=== PATIENT | female | born 1965 | race Caucasian/White ===

== ENCOUNTER 2023-06-01 16:03 | Emergency (ER) | payer OTHER ==
[~2023-06-01] VITALS: Ht 162.6 cm; Wt 99.8 kg
[~2023-06-01 16:03] MED LIST: LEVO500T20 PO; NORCO5 PO
[2023-06-01 16:05] VITALS: BP_SYST 152; PULSE 110; RESP 20; TEMP 97.2; O2SAT 94
[2023-06-01 16:57] LABS: BASOPHILS # (AUTO) 0.1 K/uL (0.0-0.2); BASOPHILS % (AUTO) 0.5 % (0.0-2.0); EOSINOPHILS % (AUTO) 0.1 % (0.0-4.0); HEMOGLOBIN 13.9 g/dL (12.0-16.0); LYMPHOCYTES % (AUTO) 7.9 % (20.5-51.5); MEAN CORPUSCULAR HEMOGLOBIN 30 pg (27-31); MEAN CORPUSCULAR HGB CONC 34 % (32-36); MEAN CORPUSCULAR VOLUME 89 fL (79.0-98.0); MONOCYTES # (AUTO) 0.7 K/uL (0.0-1.0); MONOCYTES % (AUTO) 5.4 % (1.7-9.3); NEUTROPHILS # (AUTO) 10.4 K/uL (1.8-7.7); NEUTROPHILS % (AUTO) 86.1 % (40.0-70.0); PLATELET COUNT (AUTO) 250 K/uL (130-430); RED BLOOD CELL COUNT(AUTO) 4.61 MIL/uL (4.2-6.2); RED CELL DISTRIBUTION WIDTH 13.5 % (9.0-15.0); WHITE BLOOD COUNT (AUTO) 12.1 K/uL (4.8-10.8)
[2023-06-01 17:05] LABS: CALCIUM 8.9 mg/dL (8.4-11.0); CREATININE 0.76 mg/dL (0.55-1.30); POTASSIUM 3.6 mmol/L (3.5-5.1)
[2023-06-01] MEDS: KETOROLAC TROMETHAMINE 60 MG/2 ML VIAL IM ONE (18:18)
[2023-06-01 18:44] LABS: BILIRUBIN,URINE NEGATIVE (NEGATIVE); BLOOD, URINE NEGATIVE (NEGATIVE); COLOR,URINE YELLOW (YELLOW); GLUCOSE,URINE 1+ (NEGATIVE); KETONES,URINE NEGATIVE (NEGATIVE); LEUKOCYTE ESTERASE ,URINE TRACE (NEGATIVE); NITRITE, URINE NEGATIVE (NEGATIVE); PROTEIN URINE TRACE (NEGATIVE); UROBILINOGEN,URINE 0.2 (0.2-1.0)
[2023-06-01 18:46] LABS: CLARITY/URINE SLIGHTLY HAZY (CLEAR)
[2023-06-01 19:25] LABS: BACTERIA,URINE FEW /HPF (None Seen); MUCUS,URINE None Seen /LPF (None Seen); RBC,URINE 0-3 /HPF (0-3)
[2023-06-01] MEDS ORDERED: IBUP-1969 PO (19:34)
[2023-06-01] MEDS ORDERED: CIPR-260 PO (19:34)
[2023-06-01] MEDS ORDERED: TRAM50TA2 PO (19:34)
[2023-06-01] MEDS ORDERED: TAMS-11 PO (19:34)
[2023-06-01] MEDS: cefTRIAXone 1 GM in LIDOCAINE 1%, 20 ML MDV 2.1 ML IM ONE (19:38)
[2023-06-01 19:50] VITALS: BP_SYST 179; PULSE 94; RESP 18; TEMP 98.7; O2SAT 100
== END 2023-06-01 19:50 | disposition home or self-care (01) ==
LOC: SED 16:03
DX: N23 Unspecified renal colic (principal); N39.0 Urinary tract infection, site not specified; Z98.890 Other specified postprocedural states; R03.0 Elevated blood-pressure reading, without diagnosis of hypertension
CPT/HCPCS: 99285; 74176; 80048; 81000; 81001; 85025; 87040; 87086; 36415; 96372; 83605; 81015; J0696; J1885; J2001

== ENCOUNTER 2023-10-18 11:33 | Emergency (ER) | payer OTHER ==
[~2023-10-18] VITALS: Ht 162.6 cm; Wt 104.3 kg
[~2023-10-18 11:33] MED LIST changes: +CIPR-260 PO; +IBUP-1969 PO; +TAMS-11 PO; +TRAM50TA2 PO
[2023-10-18 11:39] VITALS: BP_SYST 144; PULSE 98; RESP 18; TEMP 96.4; O2SAT 97
[2023-10-18 12:10] LABS: BILIRUBIN,URINE NEGATIVE (NEGATIVE); BLOOD, URINE 3+ (NEGATIVE); CLARITY/URINE SL CLOUDY (CLEAR); COLOR,URINE YELLOW (YELLOW); GLUCOSE,URINE NEGATIVE (NEGATIVE); KETONES,URINE NEGATIVE (NEGATIVE); LEUKOCYTE ESTERASE ,URINE 3+ (NEGATIVE); NITRITE, URINE NEGATIVE (NEGATIVE); PROTEIN URINE 1+ (NEGATIVE); UROBILINOGEN,URINE 0.2 (0.2-1.0)
[2023-10-18 12:13] LABS: BASOPHILS # (AUTO) 0.1 K/uL (0.0-0.2); BASOPHILS % (AUTO) 0.5 % (0.0-2.0); EOSINOPHILS # (AUTO) 0.1 K/uL (0.0-0.4); EOSINOPHILS % (AUTO) 0.9 % (0.0-4.0); HEMATOCRIT 45.3 % (36-48); HEMOGLOBIN 14.9 g/dL (12.0-16.0); LYMPHOCYTES % (AUTO) 15.9 % (20.5-51.5); MEAN CORPUSCULAR HEMOGLOBIN 29 pg (27-31); MEAN CORPUSCULAR HGB CONC 33 % (32-36); MEAN CORPUSCULAR VOLUME 89 fL (79.0-98.0); MONOCYTES # (AUTO) 0.7 K/uL (0.0-1.0); MONOCYTES % (AUTO) 5.8 % (1.7-9.3); NEUTROPHILS # (AUTO) 9.6 K/uL (1.8-7.7); NEUTROPHILS % (AUTO) 76.9 % (40.0-70.0); PLATELET COUNT (AUTO) 289 K/uL (130-430); RED CELL DISTRIBUTION WIDTH 13.8 % (9.0-15.0); WHITE BLOOD COUNT (AUTO) 12.5 K/uL (4.8-10.8)
[2023-10-18 12:23] LABS: CALCIUM 9.6 mg/dL (8.4-11.0); CREATININE 0.9 mg/dL (0.55-1.30); POTASSIUM 3.9 mmol/L (3.5-5.1)
[2023-10-18 12:32] LABS: BACTERIA,URINE RARE /HPF (None Seen); YEAST,URINE Moderate /HPF (None Seen)
[2023-10-18 12:33] LABS: WBC,URINE 50-80 /HPF (0-3)
[2023-10-18] MEDS ORDERED: CEPH250C PO (15:03)
[2023-10-18 15:07] VITALS: BP_SYST 160; PULSE 82; RESP 16; TEMP 98.2; O2SAT 95
== END 2023-10-18 15:11 | disposition home or self-care (01) ==
LOC: SED 11:33
DX: N13.39 Other hydronephrosis (principal); N39.0 Urinary tract infection, site not specified; R10.9 Unspecified abdominal pain; R31.9 Hematuria, unspecified; E11.9 Type 2 diabetes mellitus without complications; I10 Essential (primary) hypertension; Z90.49 Acquired absence of other specified parts of digestive tract; Z98.890 Other specified postprocedural states; Z79.899 Other long term (current) drug therapy; Z79.2 Long term (current) use of antibiotics
CPT/HCPCS: 36415; 80048; 81000; 81001; 81015; 85025; 87086; 99284